=== PATIENT | female | born 1965 | race Hispanic/Latino ===

== ENCOUNTER → 2024-01-16 | Outpatient (CLI) | payer MEDICAID | END | disposition home or self-care (01) | LOC: SHCH 08:56 | PROVIDERS: ATTEND Internal Medicine Cardiovascular Disease | DX: I34.81 Nonrheumatic mitral (valve) annulus calcification (principal); I51.7 Cardiomegaly; R01.1 Cardiac murmur, unspecified | CPT/HCPCS: 93306 ==

== ENCOUNTER 2025-02-06 05:37 | Day surgery (SDC) | payer MEDICAID ==
[2025-02-04 14:26] VITALS: BP 168/79; PULSE 88; RESP 14; TEMP 98.4
[2025-02-04 14:27] LABS: BASOPHILS # (AUTO) 0.04 K/uL (0.00-0.20); BASOPHILS % (AUTO) 0.6 % (0.0-5.0); EOSINOPHILS # (AUTO) 0.18 K/uL (0.00-0.70); EOSINOPHILS % (AUTO) 2.7 % (0.0-8.0); IMMATURE GRANULOCYTE ABSOLUTE 0.03 K/uL (0-1); LYMPHOCYTES # (AUTO) 1.9 K/uL (1.0-4.8); LYMPHOCYTES % (AUTO) 29.5 % (21.0-51.0); MEAN CORPUSCULAR HEMOGLOBIN 28.4 pg (27.0-33.0); MEAN CORPUSCULAR HGB CONC 32.5 g/dL (32.0-36.0); MEAN CORPUSCULAR VOLUME 87.5 fL (79-99); MONOCYTES # (AUTO) 0.6 K/uL (0.1-1.0); MONOCYTES % (AUTO) 8.7 % (3.0-13.0); NEUTROPHILS # (AUTO) 3.8 K/uL (1.8-7.7); PLATELET COUNT (AUTO) 298 K/uL (130-400); RED BLOOD CELL COUNT(AUTO) 4.57 MIL/uL (4.00-5.50); RED CELL DISTRIBUTION WIDTH 12.7 % (11.0-15.5); WHITE BLOOD COUNT (AUTO) 6.6 K/uL (4.8-10.8)
[2025-02-04 14:50] LABS: CREATININE 0.5 mg/dL (0.5-1.0); POTASSIUM 3.9 mmol/L (3.5-5.1)
[2025-02-04 14:58] LABS: INR 1.02 (0.85-1.15); PROTHROMBIN TIME 10.8 SEC (9.6-11.6)
[2025-02-04 14:59] LABS: PARTIAL THROMBOPLASTIN TIME 27.4 SEC (26.3-35.5)
[2025-02-06] VITALS (7 sets, daily range): BP systolic 151–199; BP diastolic 77–90; PULSE 65–87; RESP 15–18; TEMP 97.4–98.2
[~2025-02-06] VITALS: Ht 157.5 cm; Wt 66.5 kg
[~2025-02-06 05:37] MED LIST: ASPI-1197 PO; METF-444 PO; PROP225T3 PO; TAMO20TA4 PO; TELM80TA10 PO; VERA120T92 PO
[2025-02-06] MEDS: 0.9%NACL 1000ML 1,000 ML IV SCH (06:56)
[2025-02-06] MEDS ORDERED: HEParin 10,000 UNIT/10ML (1,000 UNIT/ML) VIAL ONE (07:17)
[2025-02-06] MEDS ORDERED: LIDOCAINE HCL 400MG/20ML VIAL ONE (07:17)
[2025-02-06] MEDS ORDERED: HEParin-NS 1,000 UNIT/500 ML 500 ML IV ONE (07:17)
[2025-02-06] MEDS ORDERED: SODIUM BICARB 50MEQ 50ML VIAL 50 ML ONE (07:23)
[2025-02-06] MEDS ORDERED: FENTanyl CITRate PF 50 MCG/1 ML 2ML VIAL ONE ×2 (07:49→09:15)
[2025-02-06] MEDS ORDERED: MIDAZOLAM HCL 1 MG/ML 2ML VIAL ONE ×3 (07:50→09:15)
[2025-02-06] MEDS ORDERED: ondanSETRON 4MG INJ ONE ×2 (07:58→11:30)
[2025-02-06] MEDS ORDERED: ISOPROTERENOL HCL 0.2 MG/ML AMP/VIAL/BAG ONE (08:51)
--- NOTE | 2025-02-06 12:10 | NUR ---
PT STARTED WITH VOMITING. DR. ABDUL CALLED ORDERS GIVEN FOR MEDS
[2025-02-06] MEDS: SCOPOLAMINE HYDROBROMIDE 1 EACH ADH..PATCH TD ONE (12:21)
[2025-02-06] MEDS ORDERED: SCOPOLAMINE HYDROBROMIDE 1 EACH ADH..PATCH TD ONE (12:30)
--- NOTE | 2025-02-06 13:15 | NUR ---
PT TAKEN OUTSIDE SPOKE TO BOTH PT AND SON ABOUT DISCHARGE INSTRUCTIONS.
== END 2025-02-06 13:25 | disposition home or self-care (01) ==
LOC: DAH 05:37
PROVIDERS: ATTEND Internal Medicine Cardiovascular Disease
DX: I47.10 Supraventricular tachycardia, unspecified (principal); I10 Essential (primary) hypertension; Z85.3 Personal history of malignant neoplasm of breast; Z79.84 Long term (current) use of oral hypoglycemic drugs; Z79.01 Long term (current) use of anticoagulants; Z79.82 Long term (current) use of aspirin; Z79.899 Other long term (current) drug therapy
CPT/HCPCS: 80048; 85025; 85610; 85730; 36415; 93653; 93623; 82948; C1894 ×5; C1732 ×2; C1730 ×2; A4649 ×2; C1760 ×4; J3010 ×2; J3490 ×3; J7030; J1644 ×2; J2250 ×3; J2405 ×2; A4215; A4335; A4222; A4221; A4663; A4216; A4606; A4223 ×3; 99156; 99157